=== PATIENT | male | born 1990 | race Two or more races ===

== ENCOUNTER 2023-12-09 20:19 | Emergency (ER) | payer MEDICAID, SELFPAY ==
--- NOTE | ~2023-12-09 | XR_ITS ---
EXAMINATION: XR CHEST CLINICAL INFORMATION: Chest pain. COMPARISON: None available. TECHNIQUE: 2 views of the chest were obtained. FINDINGS: No focal airspace opacities, pleural effusion or pneumothorax. Normal heart size. No acute osseous findings. Visualized upper abdomen is within normal limits. XR/XR chest 2V IMPRESSION: No acute cardiopulmonary findings.
--- NOTE | 2023-12-09 20:22 | ED.GENADULT ---
HPI - General Adult General Chief complaint: Chest Pain Stated complaint: chest pains Time Seen by Provider: 12/10/23 00:04 Source: patient Mode of arrival: ambulatory Limitations: no limitations History of Present Illness HPI narrative: Patient with chronic cough lives in the basement for last few months and cough getting worse feel nasal congestion today while driving on the way felt hard to breathe no history of asthma occasionally smokes no fever no chills Related Data Previous Rx's Medication Instructions Recorded benzonatate 200 mg capsule 200 mg PO TID PRN cough #30 caps 12/10/23 fexofenadine 180 mg tablet 180 mg PO DAILY #90 tabs 12/10/23 (Ioana Allergy) ibuprofen 600 mg tablet 600 mg PO Q6H PRN fever or pain 12/10/23 #30 tabs Allergies Allergy/AdvReac Type Severity Reaction Status Date / Time No Known Allergies Allergy Verified 12/09/23 20:24 Review of Systems Review of Systems: Yes all other systems are reviewed and are negative [facility] Social History Social History Alcohol intake: current Alcohol intake frequency: 3 or more drinks per day Smoked in Last 30 Days: Yes Use of substances other than those prescribed or required for medical reasons: No Advance Directives: No Advance Directives Information Provided: No Physical Exam ED Vital Signs: Vital Signs - 24 hr 12/09/23 20:24 12/09/23 23:33 12/10/23 00:00 Temperature 98.6 F 98.1 F Pulse Rate 94 98 95 Respiratory Rate 18 18 16 Blood Pressure 148/79 H 124/81 119/79 Pulse Oximetry 95 96 98 Oxygen Delivery Method Room Air Room Air Room Air BMI result Body Mass Index 35.1 Appearance: Alert. Oriented X3. No acute distress. ENT: Pharynx normal. Oral Mucosa moist inflamed nasal turbinate with clear discharge Neck: Normal inspection. Neck supple. CVS: Normal heart rate and rhythm. Pulses normal. Respiratory: No respiratory distress. Equal air entry bilateral, no wheezing/rales/rhonchi Abdomen: Soft and nontender. Bowel sounds are present, Skin: Skin warm and dry. Normal skin color. Normal skin turgor. Extremities: No lower extremity edema. No calf tenderness Neuro: Oriented X 3. Course Course Course Narrative: This is a rapid medical exam: Additional HPI, ROS, PE not included below will be deferred to primary provider. Patient is a 33-year-old male presenting to the ED with complaint of left lateral chest/rib pain. Reports cough for the past 2 months. Denies fevers. Pain worse with movement of left arm and lifting. Plan: EKG, labs, CXR Medications Administered Discontinued Medications Generic Name Dose Route Start Last Admin Trade Name Travisq PRN Reason Stop Dose Admin Benzonatate 200 mg 12/10/23 00:29 12/10/23 00:47 Benzonatate 100 Mg Capsule PO 12/10/23 00:30 200 mg ONCE ONE Administration Ibuprofen 600 mg 12/10/23 00:29 12/10/23 00:47 Ibuprofen 600 Mg Tablet PO 12/10/23 00:30 600 mg ONCE ONE Administration Loratadine 10 mg 12/10/23 00:29 12/10/23 00:48 Loratadine 10 Mg Tablet PO 12/10/23 00:30 10 mg ONCE ONE Administration Medical Decision Making Medical Decision Making [facility] Narrative: Patient with likely allergic bronchitis living in the basement negative the cause chest x-ray negative for pneumonia Lab Data [facility] Lab Attestation statement: I reviewed the patient's lab results. 12/09/23 20:44 12/09/23 20:44 Labs: Lab Results 12/09/23 Range/Units 20:44 WBC 12.3 H (4.8-10.8) X10*3/uL RBC 5.23 (4.60-5.80) X10*6/uL Hgb 15.7 (14.0-18.0) g/dl Hct 45.0 (42.0-52.0) % MCV 86.0 (80.0-98.0) fL MCH 30.0 (27.0-33.0) pg MCHC 34.9 (31.0-36.0) g/dl RDW 12.6 (11.0-16.0) % Plt Count 205 (160-400) X10*3/uL MPV 11.6 (9.4-12.4) fL Immature Gran % (Auto) 0.2 (0.0-0.4) % Neut % (Auto) 59.4 (45-73) % Lymph % (Auto) 28.6 (20-40) % [place] % (Auto) 7.8 (2-11) % Eos % (Auto) 3.7 (0-4) % Baso % (Auto) 0.3 (0-2) % Lymph # (Auto) 3.5 (1.2-4.9) X10*3/uL [place] # (Auto) 1.0 (0.1-1.2) X10*3/uL Eos # (Auto) 0.5 H (0.0-0.4) X10*3/uL Baso # (Auto) 0.0 (0.0-0.2) X10*3/uL Abs Immat Gran (auto) 0.03 (0.00-0.03) X10*3/uL Absolute Neuts (auto) 7.3 (2.0-8.3) x10*3/uL Absolute Nucleated RBC 0.000 (0.0-0.012) X10*3/uL Nucleated RBC % (auto) 0.0 (0.0-0.2) /100WBC PT 11.3 (11.1-13.3) SEC INR 0.9 (0.9-1.1) Sodium 139 (135-145) mmol/L Potassium 3.6 (3.3-5.1) mmol/L Chloride 106 (96-108) mmol/L Carbon Dioxide 24 (22-29) mmol/L Anion Gap 13 (12-20) BUN 15 (9-16) mg/dL Creatinine 1.14 (0.5-1.4) mg/dL Estim Creat Clear Calc 101.3 Estimated GFR > 60 Random Glucose 88 (60-115) mg/dL Calcium 9.1 (8.4-10.2) mg/dL Total Bilirubin 0.4 (0.0-1.0) mg/dL AST 23 (5-37) U/L ALT 19 (0-40) U/L Alkaline Phosphatase 60 (39-117) U/L Troponin I High Sens < 2.7 (<3.5-35.0) ng/L Total Protein 7.9 (6.5-8.0) g/dL Albumin 4.2 (3.5-5.0) g/dL Discharge Plan Discharge Clinical Impression: Allergic bronchitis Patient Disposition: Home, Self-Care Instructions: Acute Bronchitis (ED) Additional Instructions: Take medication as prescribed for cough and allergies Your symptoms are likely from environment where you live Prescriptions: New benzonatate 200 mg capsule 200 mg PO TID PRN (Reason: cough) Qty: 30 0RF ibuprofen 600 mg tablet 600 mg PO Q6H PRN (Reason: fever or pain) Qty: 30 0RF fexofenadine [Ioana Allergy] 180 mg tablet 180 mg PO DAILY Qty: 90 0RF Interventions: ED Discharge Assessment Last Done: 12/10/23 00:50 Discharge Date/Time: 12/10/23 00:51
[2023-12-09 20:24] VITALS: BP 148/79; PULSE 94; RESP 18; TEMP 37; O2SAT 95; BMI 35.1
--- NOTE | 2023-12-09 20:24 | ECG_ITS ---
Test Reason : CHESTPAIN Blood Pressure : / mmHG Vent. Rate : 091 BPM Atrial Rate : 091 BPM P-R Int : 186 ms QRS Dur : 086 ms QT Int : 334 ms P-R-T Axes : 045 -06 004 degrees QTc Int : 410 ms Normal sinus rhythm Normal ECG No previous ECGs available Referred By: Ashley Olmedo Electronically Signed By:MICHAEL DE OLIVEIRA
[2023-12-09 20:49] LABS: MANUAL DIFF FLAG NO
[2023-12-09 20:53] LABS: Basophils Percent Auto 0.3 % (0-2); Eosinophils Absolute Auto 0.5 X10*3/uL (0.0-0.4); Eosinophils Percent Auto 3.7 % (0-4); Hemoglobin 15.7 g/dl (14.0-18.0); Imm Gran Abs Auto 0.03 X10*3/uL (0.00-0.03); Imm Gran Pct Auto 0.2 % (0.0-0.4); Lymphocytes Absolute Auto 3.5 X10*3/uL (1.2-4.9); Lymphocytes Percent Auto 28.6 % (20-40); Mean Corpuscular HGB Conc 34.9 g/dl (31.0-36.0); Mean Platelet Volume 11.6 fL (9.4-12.4); Monocytes Percent Auto 7.8 % (2-11); Neutrophils Absolute Auto 7.3 x10*3/uL (2.0-8.3); Neutrophils Percent Auto 59.4 % (45-73); Platelet Count 205 X10*3/uL (160-400); Red Blood Count 5.23 X10*6/uL (4.60-5.80); Red Cell Distribution Width 12.6 % (11.0-16.0); White Blood Count 12.3 X10*3/uL (4.8-10.8)
[2023-12-09 21:06] LABS: Alanine Aminotransferase 19 U/L (0-40); Albumin Level 4.2 g/dL (3.5-5.0); Alkaline Phosphatase 60 U/L (39-117); Anion Gap 13 (12-20); Aspartate Amino Transferase 23 U/L (5-37); Bilirubin Total 0.4 mg/dL (0.0-1.0); Blood Urea Nitrogen 15 mg/dL (9-16); Calcium 9.1 mg/dL (8.4-10.2); Carbon Dioxide 24 mmol/L (22-29); Chloride 106 mmol/L (96-108); Creatinine Clr Calc Pharmacy 101.3; Estimated Glomerular Filt Rate > 60; Glucose Random 88 mg/dL (60-115); Potassium 3.6 mmol/L (3.3-5.1); Sodium 139 mmol/L (135-145); Total Protein 7.9 g/dL (6.5-8.0)
[2023-12-09 21:08] LABS: INTERNATIONAL NORM RATIO 0.9 (0.9-1.1); Prothrombin Time 11.3 SEC (11.1-13.3)
[2023-12-09 21:14] LABS: Troponin-I High Sensitivity < 2.7 ng/L (<3.5-35.0)
[2023-12-09 23:33] VITALS: BP 124/81; PULSE 98; RESP 18; O2SAT 96
[2023-12-10] VITALS: BP 119/79; PULSE 95; RESP 16; TEMP 36.7; O2SAT 98
[2023-12-10] MEDS: Ibuprofen 600 MG TABLET PO (00:47)
[2023-12-10] MEDS: Benzonatate 100 MG CAPSULE 200 MG PO (00:47)
[2023-12-10] MEDS: Loratadine 10 MG TABLET PO (00:48)
== END 2023-12-10 00:51 | disposition home or self-care (01) ==
PROVIDERS: Registered Nurse Emergency; Emergency Provider Internal Medicine
DX: J45.909 Unspecified asthma, uncomplicated (principal); R07.89 Other chest pain; R05.9 Cough, unspecified; R09.81 Nasal congestion; Z79.899 Other long term (current) drug therapy
CPT/HCPCS: 36415; 71046; 80053; 84484; 85025; 85610; 93005; 99283; 99285

== ENCOUNTER → 2023-12-09 20:24 | Outpatient (BNV) | payer MEDICAID, SELFPAY | PROVIDERS: Emergency Provider Internal Medicine; Visit Provider Internal Medicine | DX: R07.9 Chest pain, unspecified (principal) | CPT/HCPCS: 93010 ==

== ENCOUNTER 2024-01-21 10:26 | Emergency (ER) | payer OTHER, MEDICAID, SELFPAY ==
[2024-01-21 11:21] VITALS: BP 114/74; PULSE 72; RESP 18; TEMP 37; O2SAT 98; BMI 30.7
--- NOTE | 2024-01-21 11:21 | ED_ITS ---
HPI - General Adult General Chief complaint: Ear Problems Stated complaint: R Ear Blockage Time Seen by Provider: 01/21/24 11:26 Source: patient, RN notes reviewed and old records reviewed Mode of arrival: ambulatory Limitations: no limitations History of Present Illness HPI narrative: 34 year old male with no significant pmhx presents to the ED today for evaluation of right ear blockage x4 days upon waking up in a hotel over the weekend. Denies trauma or injury to the ear. Denies sticking anything in the ear. Denies recent flights or scuba diving. He admits that he's had a cold recently and has been coughing. He denies any known sick contacts. Denies fever, chills, drainage from the ear, ear pain, hearing loss, eye pain, vision changes. Denies history of DM. He does not take medications on a daily basis. No recent abx. Related Data Previous Rx's ?Medication ?Instructions ?Recorded benzonatate 200 mg capsule 200 mg PO TID PRN cough #30 caps 12/10/23 fexofenadine 180 mg tablet 180 mg PO DAILY #90 tabs 12/10/23 (Ioana Allergy) ibuprofen 600 mg tablet 600 mg PO Q6H PRN fever or pain 12/10/23 #30 tabs Allergies Allergy/AdvReac Type Severity Reaction Status Date / Time No Known Allergies Allergy Verified 01/21/24 11:23 Review of Systems Review of Systems: Constitutional: No fever, chills, fatigue, night sweats, weight changes ENT/Mouth: No ear pain, hearing loss, nasal congestion, sinus pain, rhinorrhea, sore throat, +right ear congestion Eyes: No eye pain, swelling, redness, vision changes, discharge Cardio: No chest pain, palpitations, CULVER, orthopnea, peripheral edema Pulm: No SOB, cough, sputum, wheezing, dyspnea, hemoptysis GI: No nausea, vomiting, hematemesis, abdominal pain, diarrhea, constipation, hematochezia, melena : No irregular bleeding, dysuria, frequency, urgency, hesitancy, hematuria, flank pain, urinary flow changes, urinary incontinence or retention MSK: No back pain, neck pain, joint pain, myalgias Skin: No lesions, rashes Neuro: No weakness, numbness, paresthesias, LOC, dizziness, headache Psych: No anxiety/panic, depression, SI/HI, AH/VH All other systems reviewed and are negative. FORMERLY [facility], [facility] Past Medical History Attestation statement: The following information was validated with the patient. Source: old records reviewed and nursing notes reviewed Social History Social History Alcohol intake: current Alcohol intake frequency: 3 or more drinks per day Advance Directives: No Physical Exam ED Vital Signs: Vital Signs - 24 hr 01/21/24 11:21 Temperature 98.6 F Pulse Rate 72 Respiratory Rate 18 Blood Pressure 114/74 Pulse Oximetry 98 Oxygen Delivery Method Room Air BMI result Body Mass Index 30.7 Const Orientation/consciousness: patient oriented x3 HENMT Other: + No pain on manipulation of left pinna or tragus. No mastoid tenderness. Left EAC without erythema, edema or discharge. No cerumen. TM intact without erythema, effusion, or bulging. + No pain on manipulation of right pinna or tragus. No mastoid tenderness. Right EAC without erythema, edema or discharge. No cerumen. TM intact without erythema, effusion, or bulging. Head: Yes normal to inspection, Yes No palpable skull fracture present, Yes normocephalic and Yes atraumatic Ears: no periauricular adenopathy General nose exam: Normal external nose present Face and sinus: Yes sinuses nontender Eyes General: appearance normal, both eyes and all related structures Conjunctivae: conjunctivae normal Pupils: Equal, round and reactive pupils present EOM: EOMs intact bilaterally Neck Neck: Yes normal visual inspection and Yes no lymphadenopathy Resp Effort & Inspection: normal respiratory effort Auscultation: clear to auscultation bilaterally Cardio Rate: regular rate Rhythm: regular rhythm Skin General skin exam: no rashes or lesions noted Neuro General: patient oriented x3 Cranial nerves: Yes Equal, round and reactive pupils present Course Course Course Narrative: 1130-- there is no evidence of a FB within the right EAC. No cerumen to warrant removal or disimpaction. No TM perforation or signs of infection. Ear congestion likely secondary to recent viral illness. I offered to test the patient for COVID/FLU/RSV however is declining this at this time and would like to be discharged home. Patient has remained stable throughout ED visit today. Discussed worrisome signs and symptoms and when to return to the ED. All questions answered at this time. Patient is agreeable with disposition and stable for discharge. Medical Decision Making Medical Decision Making [facility] Narrative: 34 year old male with no significant pmhx presents to the ED today for evaluation of right ear blockage x4 days upon waking up in a hotel over the weekend. Vital signs stable, afebrile. He is nontoxic appearing in no acute distress. Differential diagnosis includes viral syndrome, otitis media, otitis externa, ear foreign body. Unlikely malignant otitis externa, TM rupture, Differential Diagnosis Differential Diagnoses: The differential diagnosis associated with the presentation includes as above. Admission/Observation Not indicated. Prescription Management I considered prescription management with: Pain Medication and Antibiotic Social Determinants Patient?s care significantly limited by Social Determinants of Health including: Other Social Determinant of Health Discharge Plan Discharge Clinical Impression: Congestion of right ear Patient Disposition: Home, Self-Care Additional Instructions: You were evaluated in the ED today for blocked right ear. There is no evidence of cerumen impaction or infection. You have been provided with a referral to ENT if symptoms persist. Follow up with your PCP as needed. Return to the ED with new or worsening symptoms. In the case of an emergency call 911. Prescriptions: No Action benzonatate 200 mg capsule 200 mg PO TID PRN (Reason: cough) Qty: 30 0RF ibuprofen 600 mg tablet 600 mg PO Q6H PRN (Reason: fever or pain) Qty: 30 0RF fexofenadine [Ioana Allergy] 180 mg tablet 180 mg PO DAILY Qty: 90 0RF Referrals: Mauro Clifton [Physician] - Stand Alone Forms: Work/School Release Interventions: ED Discharge Assessment Last Done: 01/21/24 12:19 Discharge Date/Time: 01/21/24 12:19 Print Language: French
[2024-01-21 12:19] VITALS: BP 114/74; PULSE 72; RESP 18; TEMP 37; O2SAT 98
== END 2024-01-21 12:19 | disposition home or self-care (01) ==
PROVIDERS: Emergency Provider Student in an Organized Health Care Education/Training Program
DX: H83.8X1 Other specified diseases of right inner ear (principal)
CPT/HCPCS: 99282

== ENCOUNTER 2025-09-27 20:07 | Emergency (ER) | payer OTHER, MEDICAID, SELFPAY ==
--- NOTE | 2025-09-27 20:09 | ECG_ITS ---
Test Reason : CHEST PAIN Blood Pressure : */* mmHG Vent. Rate : 103 BPM Atrial Rate : 103 BPM P-R Int : 170 ms QRS Dur : 86 ms QT Int : 322 ms P-R-T Axes : 67 3 17 degrees QTcB Int : 421 ms Sinus tachycardia Otherwise normal ECG When compared with ECG of 09-Dec-2023 20:38, No significant change was found Referred By: Generic ED Physician Electronically Signed By: Aauysh Weinberg
[2025-09-27 20:21] VITALS: BP 134/86; PULSE 91; RESP 18; TEMP 36.8; O2SAT 98; BMI 32.3
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
[2025-09-27 22:38] LABS: MANUAL DIFF FLAG NO
[2025-09-27 22:39] LABS: Hematocrit 46.3 % (42.0-52.0); Hemoglobin 15.9 g/dl (14.0-18.0); Imm Gran Abs Auto 0.04 X10*3/uL (0.00-0.03); Imm Gran Pct Auto 0.4 % (0.0-0.4); Lymphocytes Absolute Auto 2.8 X10*3/uL (1.2-4.9); Mean Corpuscular HGB Conc 34.3 g/dl (31.0-36.0); Mean Corpuscular Hemoglobin 29.8 pg (27.0-33.0); Mean Corpuscular Volume 86.9 fL (80.0-98.0); NRBC Abs Auto 0.000 X10*3/uL (0.0-0.012); NRBC Pct Auto 0.0 /100WBC (0.0-0.2); Platelet Count 268 X10*3/uL (160-400); Red Blood Count 5.33 X10*6/uL (4.60-5.80); White Blood Count 11.1 X10*3/uL (4.8-10.8)
[2025-09-27 22:56] LABS: Alanine Aminotransferase 36 U/L (0-40); Albumin Level 4.6 g/dL (3.5-5.0); Alkaline Phosphatase 57 U/L (39-117); Anion Gap 13 (12-20); Aspartate Amino Transferase 29 U/L (5-37); Blood Urea Nitrogen 18 mg/dL (9-16); Calcium 9.3 mg/dL (8.4-10.2); Carbon Dioxide 26 mmol/L (22-29); Chloride 107 mmol/L (96-108); Creatinine Clr Calc Pharmacy 92.9; Estimated Glomerular Filt Rate > 60; Potassium 4.1 mmol/L (3.3-5.1); Sodium 142 mmol/L (135-145); Total Protein 8.3 g/dL (6.5-8.0)
[2025-09-27 23:05] LABS: Troponin-I High Sensitivity < 2.7 ng/L (<3.5-35.0)
[2025-09-28 00:30] VITALS: BP 125/77; PULSE 100; RESP 18; TEMP 36.6; O2SAT 98
== END 2025-09-28 00:31 | disposition home or self-care (01) ==
PROVIDERS: Emergency Medicine; Emergency Provider Emergency Medicine
DX: F41.9 Anxiety disorder, unspecified (principal); R07.89 Other chest pain; R00.0 Tachycardia, unspecified
CPT/HCPCS: 36415; 80048; 80076; 84484; 85025; 93005; 99283

== ENCOUNTER → 2025-09-27 20:09 | Outpatient (BNV) | payer OTHER, MEDICAID, SELFPAY | PROVIDERS: Emergency Provider Emergency Medicine; Visit Provider Internal Medicine Cardiovascular Disease | DX: R00.0 Tachycardia, unspecified (principal) | CPT/HCPCS: 93010 ==